=== PATIENT | male | born 1995 | race Caucasian/White ===

== ENCOUNTER 2020-02-16 21:21 | Emergency (ER) | payer MEDICAID ==
[~2020-02-16] VITALS: Ht 167.6 cm; Wt 56.8 kg
[2020-02-16 23:04] VITALS: BP 116/66
== END 2020-02-16 23:00 | disposition home or self-care (01) ==
LOC: ER 21:22
DX: B34.9 Viral infection, unspecified (principal); R19.7 Diarrhea, unspecified; R42 Dizziness and giddiness; R11.0 Nausea; J02.9 Acute pharyngitis, unspecified; F17.200 Nicotine dependence, unspecified, uncomplicated; Z72.89 Other problems related to lifestyle
CPT/HCPCS: 87077; 87081; 87880; 99283